=== PATIENT | male | born 1985 | race Caucasian/White ===

== ENCOUNTER 2017-03-01 06:48 | Emergency (ER) | payer BC ==
[~2017-03-01] VITALS: Ht 177.8 cm; Wt 104.3 kg
[2017-03-01] MEDS ORDERED: PROTONIX40 MG PO (08:45)
[2017-03-01] MEDS ORDERED: ZOFRAN ODT4 MG PO (08:45)
== END 2017-03-01 09:56 | disposition home or self-care (01) ==
LOC: ED 06:48
DX: R10.32 Left lower quadrant pain (principal); F17.200 Nicotine dependence, unspecified, uncomplicated
CPT/HCPCS: 74177; 80053; 81001; 83690; 85025; 96361; 96374; 96375; 96376; 99284; J1170; J2405; J7030; Q9967